=== PATIENT | female | born 1990 | race Caucasian/White ===

== ENCOUNTER → 2016-07-15 | Outpatient (CLI) | payer MEDICAID | LOC: HPND 09:47 | DX: O99.212 Obesity complicating pregnancy, second trimester (principal); O34.212 Maternal care for vertical scar from previous cesarean delivery; Z3A.00 Weeks of gestation of pregnancy not specified | CPT/HCPCS: 76811 ==

== ENCOUNTER → 2016-08-30 | Outpatient (CLI) | payer MEDICAID | LOC: HPND 10:15 | DX: O99.210 Obesity complicating pregnancy, unspecified trimester (principal) | CPT/HCPCS: 76816 ==